=== PATIENT | male | born 1950 | race Caucasian/White ===

== ENCOUNTER 2025-01-10 10:15 | Emergency (ER) | payer MEDICARE, MEDICAID ==
[2025-01-10 12:16] VITALS: BP 168/75; PULSE 75
== END 2025-01-10 11:30 | disposition home or self-care (01) ==
LOC: LB.ED 10:15
DX: S13.4XXA Sprain of ligaments of cervical spine, initial encounter (principal); I10 Essential (primary) hypertension; Z88.0 Allergy status to penicillin; Z88.8 Allergy status to other drugs, medicaments and biological substances; Z79.899 Other long term (current) drug therapy; X50.1XXA Overexertion from prolonged static or awkward postures, initial encounter
CPT/HCPCS: 72040; 99283